=== PATIENT | female | born 1945 | race Caucasian/White ===

== ENCOUNTER 2018-07-18 14:00 | Emergency (ER) | payer OTHER ==
[~2018-07-18] VITALS: Ht 157.5 cm; Wt 86.2 kg
[2018-07-18] MEDS ORDERED: EPINEPHRINE 1 MG/1 ML AMP ONE (14:35)
[2018-07-18] MEDS ORDERED: SILVER NITRATE APPLICATOR STICK EACH TP ONE ×2 (14:35→14:45)
[2018-07-18] MEDS ORDERED: CLONIDINE HCL 0.2 MG TABLET ONE (14:41)
[2018-07-18] MEDS ORDERED: CLONIDINE HCL 0.2 MG TABLET PO ONE (14:45)
[2018-07-18] MEDS ORDERED: EPINEPHRINE-PF 1:1000 1 MG/ML AMPUL IV ONE (14:45)
--- NOTE | 2018-07-18 15:11 | NUR ---
MSE COMPLETED, DR MATA TX'D PT , NO BLEEDING NOTICED X 30MIN. PT THEN D/C'D HOME, ACI GIVEN. PT AMBULATED W/O DIFF/TOOK ALL BELONGINGS.
[2018-07-18 15:13] VITALS: BP 163/80
== END 2018-07-18 15:13 | disposition home or self-care (01) ==
LOC: ER 14:03
DX: R04.0 Epistaxis (principal)
CPT/HCPCS: 96372; 99283; J0171; A4663

== ENCOUNTER 2018-07-25 00:20 | Emergency (ER) | payer OTHER ==
[~2018-07-25] VITALS: Ht 157.5 cm; Wt 86.2 kg
[2018-07-25] MEDS ORDERED: NIFE20CA8 PO (00:38)
[2018-07-25] MEDS ORDERED: LIDOCAINE 4% TOPICAL 50 ML BOTTLE ONE (00:57)
[2018-07-25] MEDS ORDERED: PHENYLEPHRINE 1% (EXTRA STR) NASAL SPRAY NS ONE ×2 (00:57→01:00)
[2018-07-25] MEDS ORDERED: SILVER NITRATE APPLICATOR STICK EACH TP ONE ×2 (00:58→01:00)
[2018-07-25] MEDS ORDERED: LIDOCAINE 4% TOPICAL 50 ML BOTTLE TP ONE (01:00)
[2018-07-25 01:10] LABS: BASOPHILS # (AUTO) 0.1 K/uL (0.0-8.0); BASOPHILS % (AUTO) 1.2 % (0.0-2.0); EOSINOPHILS # (AUTO) 0.3 K/uL (0.0-0.7); HEMATOCRIT 41.6 % (31.2-41.9); HEMOGLOBIN 13.7 g/dL (10.9-14.3); LYMPHOCYTES # (AUTO) 2.6 K/uL (20.0-40.0); LYMPHOCYTES % (AUTO) 28.5 % (20.5-51.5); MEAN CORPUSCULAR HEMOGLOBIN 26.5 uug (24.7-32.8); MEAN CORPUSCULAR HGB CONC 33 g/dL (32.3-35.6); MEAN CORPUSCULAR VOLUME 80.4 fL (75.5-95.3); MONOCYTES # (AUTO) 0.8 K/uL (2.0-10.0); MONOCYTES % (AUTO) 8.5 % (0.0-11.0); NEUTROPHILS # (AUTO) 5.3 K/uL (1.8-8.9); NEUTROPHILS % (AUTO) 58.8 % (38.5-71.5); PLATELET COUNT (AUTO) 265 K/uL (179-408); RED BLOOD CELL COUNT(AUTO) 5.18 MIL/uL (3.63-4.92)
[2018-07-25 01:17] LABS: CARBON DIOXIDE 25 mmol/L (21-32); CHLORIDE 102 mmol/L (98-107); GLUCOSE 122 mg/dL (74-106); POTASSIUM 3.5 mmol/L (3.5-5.1); UREA NITROGEN, BLOOD 18 mg/dL (7-18)
--- NOTE | 2018-07-25 01:23 | NUR ---
Pt. ambulated into ED w/ male account leader w/ c/o epistaxis from R nare since yesterday, pt. was seen in ED on Jul.20 for same issue and vessel was cauterized in the nose, denies PIEDRA/F/C/N/V/dizziness
--- NOTE | 2018-07-25 01:40 | NUR ---
Pt. resting in bed, no acute distress,
[2018-07-25] MEDS ORDERED: CLONIDINE HCL 0.1 MG TABLET ONE (02:06)
[2018-07-25] MEDS ORDERED: CLONIDINE HCL 0.1 MG TABLET PO ONE (02:15)
[2018-07-25 02:17] VITALS: BP 175/95
--- NOTE | 2018-07-25 02:18 | NUR ---
Patient discharged to home in stable conditon. Written and verbal after care instructions given. Patient verbalizes understanding of instructions. Pt. d/c per MD orders, d/c papers signed, all belongings w/ pt., ID band removed, ambulated w/ steady gait off unit, accompanied by family to leave in private vehicle, no acute distress,
== END 2018-07-25 02:21 | disposition home or self-care (01) ==
LOC: ER 00:21
DX: R04.0 Epistaxis (principal); I10 Essential (primary) hypertension; Z79.899 Other long term (current) drug therapy
CPT/HCPCS: 30901; 36415; 85025; 85730; A4663